=== PATIENT | female | born 1980 | race American Indian/Alaskan Native ===

== ENCOUNTER 2021-08-21 22:35 | Emergency (ER) | payer OTHER ==
[2021-08-21 22:43] VITALS: BP 159/64
[2021-08-21] MEDS ORDERED: IBUPROFEN 600 MG TAB PO ONE (23:34)
[2021-08-21] MEDS ORDERED: ACETAMINOPHEN 500 MG TAB PO ONE (23:34)
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
== END 2021-08-22 03:24 | disposition home or self-care (01) ==
LOC: ED 22:35
DX: S70.02XA Contusion of left hip, initial encounter (principal); S86.912A Strain of unspecified muscle(s) and tendon(s) at lower leg level, left leg, initial encounter; V49.59XA Passenger injured in collision with other motor vehicles in traffic accident, initial encounter; X58.XXXA Exposure to other specified factors, initial encounter; Y93.89 Activity, other specified; Y92.89 Other specified places as the place of occurrence of the external cause; Y99.8 Other external cause status
CPT/HCPCS: 99282